=== PATIENT | female | born 1980 | race Caucasian/White ===

== ENCOUNTER 2019-12-13 19:28 | Inpatient (IN) ==
[2019-12-13] MEDS ORDERED: PEPCID PO ONE (19:32)
[2019-12-13] MEDS ORDERED: STADOL IV PRN ×2 (19:32)
[2019-12-13] MEDS ORDERED: PEPCID PO PRN (19:32)
[2019-12-13] MEDS ORDERED: BRETHINE SUBQ PRN (19:32)
[2019-12-13] MEDS ORDERED: ZOFRAN IV PRN (19:32)
[2019-12-13] MEDS ORDERED: PEPCID IV PRN (19:32)
[2019-12-13] MEDS ORDERED: AMBIEN PO PRN (19:32)
[2019-12-13] MEDS ORDERED: REGLAN PO ONE (19:32)
[2019-12-13] MEDS ORDERED: TYLENOL PO PRN (19:32)
[2019-12-13] MEDS ORDERED: KEFZOL 1 GM/D5W 1 GM/50 ML IVPB IV PRN (19:32)
[2019-12-13] MEDS ORDERED: AMPICILLIN 2 GM in NS 100 ML IV ONE (19:43)
[2019-12-13] MEDS ORDERED: CYTOTEC PO ONE (20:00)
[2019-12-13] MEDS: LR 1,000 ML IV ONE (21:45)
[2019-12-13 21:57] LABS: URINE SOURCE CLEAN CATCH
[2019-12-13 22:02] LABS: BASO# 0.02 X1000 (0.0-0.2); BASO% 0.1 % (0.0-0.8); EOS# 0.22 X1000 (0.0-0.7); EOS% 1.4 % (0.0-10.0); HEMATOCRIT 33.7 % (37.0-47.0); HEMOGLOBIN 10.9 g/dL (12.0-16.0); IMM GRAN# 0.06 X1000 (0.0-0.04); IMM GRAN% 0.4 % (0.0-0.5); LYMPH# 3.01 X1000 (1.2-3.4); LYMPH% 19.1 % (20.5-51.1); MCH 26.8 PG (27-31); MCHC 32.3 g/dL (33-37); MONO# 0.97 X1000 (0.11-0.59); MONO% 6.1 % (1.7-9.3); MPV 10.1 FL (7.4-10.4); NEUT% 72.9 % (42.2-75.2); PLT 278 X1000 (130-400); RBC 4.06 XMIL (4.2-5.4); RDW 14.3 % (11.5-14.5); WBC 15.78 X1000 (4.8-10.8)
[2019-12-13 22:10] LABS: UR AMPHETAMINES QUAL NONE DETECTED (NONE DETECT); UR BARBITUATES QUAL NONE DETECTED (NONE DETECT); UR BENZODIAZEPIN QUAL NONE DETECTED (NONE DETECT); UR CANNABINOIDS QUAL NONE DETECTED (NONE DETECT); UR COCAINE QUAL NONE DETECTED (NONE DETECT); UR METHADONE QUAL NONE DETECTED (NONE DETECT); UR OPIATES QUAL NONE DETECTED (NONE DETECT); UR OXYCODONE QUAL NONE DETECTED (NONE DETECT); UR PCP QUAL NONE DETECTED (NONE DETECT)
[2019-12-13 22:20] LABS: AGAP 12; ALKALINE PHOSPHATASE 87 U/L (32-104); BUN 12 mg/dL (8-22); CALCIUM 9.1 mg/dL (8.8-10.2); CHLORIDE 105 mmol/L (98-107); COSMO 278; CREATININE 0.5 mg/dL (0.5-0.9); ESTIMATED GFR > 60; GLUCOSE 136 mg/dL (70-104); GOT 21 U/L (10-30); GPT 8 U/L (10-36); POTASSIUM 4.7 mmol/L (3.5-5.1); SODIUM 138 mmol/L (136-145); TCO2 21 mmol/L (25-35); TOTAL BILIRUBIN 0.19 mg/dL (0.20-1.00); URIC ACID 5.2 mg/dL (2.4-5.7)
[2019-12-13 22:36] LABS: BILIRUBIN URINE NEGATIVE (NEGATIVE); BLOOD URINE NEGATIVE (NEGATIVE); COLOR YELLOW; GLUCOSE URINE NEGATIVE (NEGATIVE); KETONE URINE NEGATIVE (NEGATIVE); LEUKOCYTES URINE NEGATIVE (NEGATIVE); NITRITE URINE NEGATIVE (NEGATIVE); PROTEIN URINE 50 mg/dL (NEGATIVE); SP GRAVITY URINE 1.029; TURBIDITY URINE HAZY (CLEAR); UROBILINOGEN URINE 2 mg/dL (NORMAL)
--- NOTE | 2019-12-13 22:41 | Diag Imaging Result Doc PS360 ---
CHEST-PORTABLE - 12/13/2019 INDICATION: Hx Cardiomegaly COMPARISON: 08/24/2016 FINDINGS: The lungs are normally expanded and clear. Heart size and mediastinal contours are normal. No pneumothorax or pleural effusion. IMPRESSION: Negative exam. Electronically signed by Hector Ledezma 12/13/2019 10:39 PM
[2019-12-13 22:43] LABS: UR EPITHELIAL CELLS >10 /HPF (<10); URINE BACTERIA 3+ /HPF; URINE RBC <10 /HPF (<10); URINE WBC 20-40 /HPF (<10); URINE YEAST PRESENT
[2019-12-13 22:44] LABS: URINE CASTS NONE SEEN; URINE CRYSTALS CA OXALATE PRESENT; URINE SMALL ROUND CELLS NONE SEEN
[2019-12-13] MEDS ORDERED: CYTOTEC ONE (23:26)
[2019-12-13 23:33] LABS: PROTEIN CREAT RATIO 0.2; UR CREAT RANDOM 170.1 mg/dL (11-20); UR PROT RANDOM 34.1 mg/dL
[2019-12-14] MEDS ORDERED: SODIUM CHLORIDE 0.9% INJ PRN ×2 (00:34→15:54)
[2019-12-14] MEDS ORDERED: PHENERGAN IV PRN ×2 (00:34→15:54)
[2019-12-14] MEDS: STADOL IV PRN ×2 (01:24→04:35)
--- NOTE | 2019-12-14 01:33 | OB/GYN PROGRESS NOTE ---
- Subjective Gayle was seen at the bedside and is sleepy after receiving Stadol 2mg/Phenergan 12.5 mg IV for her chronic back discomfort. It has been observed that her O2 sat decreases to ~93+ when she is sleeping. Therefore, she will receive O2 via nasal cannula. She has no complaints. OB Physical Exam Vital Signs - 8 hr 12/13/19 19:31 Temperature 97.3 F L Pulse Rate 80 Respiratory Rate 18 Blood Pressure 137/79 O2 Sat by Pulse Oximetry 97 - CONSTITUTIONAL General Appearance: no apparent distress, other (sleepy) - GENITOURINARY Heart Rate: 140-150's (cat 1) Active Medications Generic Name Dose Route Start Last Admin Trade Name Freq PRN Reason Stop Dose Admin Acetaminophen 650 mg 12/13/19 19:32 Tylenol PO Q4-6H PRN PRN Headache Butorphanol Tartrate 1 mg 12/13/19 19:32 Stadol IV Q2H PRN PRN Pain (1-4 on Pain Scale) Butorphanol Tartrate 2 mg 12/13/19 19:32 Stadol IV PRN PRN Pain Butorphanol Tartrate 2 mg 12/13/19 19:32 12/14/19 01:24 Stadol IV 2 mg Q2H PRN PRN Administration Pain (5-10 on Pain Scale) Famotidine 20 mg 12/13/19 19:32 Pepcid PO Q12H PRN PRN GI upset or indigestion Famotidine 20 mg 12/13/19 19:32 Pepcid IV Q12H PRN PRN GI upset or indigestion Lactated Ringer's 1,000 mls @ 125 mls/hr 12/13/19 19:32 12/13/19 21:45 Lr IV 12/14/19 03:31 125 mls/hr .Q8H ONE Administration Cefazolin Sodium/Dextrose 1 gm in 50 mls @ 100 mls/hr 12/13/19 19:32 Kefzol 1 Gm/D5w IV ONCE PRN PRN section Oxytocin/Sodium Chloride 30 unit in 500 mls @ 0 mls/hr 12/14/19 06:00 Pitocin 30 Units/Ns IV .Q0M JED As Directed Ampicillin Sodium 1 gm/ Sodium 50 mls @ 100 mls/hr 12/13/19 23:43 Chloride IV Q4H [facility] Misoprostol 50 microgm 12/14/19 00:00 Cytotec PO 12/14/19 04:01 Q4H JED Ondansetron HCl 4 mg 12/13/19 19:32 Zofran IV PRN PRN Nausea Promethazine HCl 12.5 mg 12/14/19 00:34 12/14/19 01:23 Phenergan IV 12.5 mg Q4H PRN PRN Administration Nausea And Vomiting Sodium Chloride 10 ml 12/14/19 00:34 12/14/19 01:23 Sodium Chloride 0.9% INJ 10 ml PRN PRN Administration Dilute Phenergan for IV use Terbutaline Sulfate 0.25 mg 12/13/19 19:32 Brethine SUBQ PRN PRN tachysystole/hypertonus Zolpidem Tartrate 10 mg 12/13/19 19:32 Ambien PO HS PRN PRN Sleep Laboratory Results - last 24 hr 12/13/19 12/13/19 12/13/19 19:30 19:30 19:30 WBC RBC Hgb Hct MCV MCH MCHC RDW Std Deviation Plt Count MPV Immature Gran % (Auto) Neut % (Auto) Lymph % (Auto) [place] % (Auto) Eos % (Auto) Baso % (Auto) Immature Gran # (Auto) Neut # (Auto) Lymph # (Auto) [place] # (Auto) Eos # (Auto) Baso # (Auto) Sodium Potassium Chloride Carbon Dioxide Anion Gap BUN Creatinine Estimated GFR/1.73 m2 BUN/Creatinine Ratio Glucose Calculated Osmolality Uric Acid Calcium Total Bilirubin AST ALT Alkaline Phosphatase Total Protein Albumin Globulin Albumin/Globulin Ratio Urine Source CLEAN CATCH Urine Color YELLOW Urine Turbidity HAZY Urine pH 6.0 Ur Specific [place] 1.029 Urine Protein 50 A Ur Glucose (Stick) NEGATIVE Ur Ketones (Stick) NEGATIVE Urine Blood NEGATIVE Urine Nitrite NEGATIVE Urine Bilirubin NEGATIVE Urobilinogen Dipstick 2 A Urine Leukocytes NEGATIVE Urine WBC (Auto) 20-40 A Urine RBC (Auto) <10 U Epithel Cells (Auto) >10 A Urine Bacteria (Auto) 3+ Urine Crystals CA OXALATE PRESENT Small Round Cells NONE SEEN Urine Casts NONE SEEN Urine Yeast-like Cells PRESENT Ur Random Creatinine 170.1 H U Random Total Protein 34.1 Protein/Creatinin Ratio 0.2 Urine Opiates Screen NONE DETECTED Ur Oxycodone Screen NONE DETECTED Ur Methadone, Qual NONE DETECTED Ur Barbiturates Screen NONE DETECTED Ur Phencyclidine Scrn NONE DETECTED Ur Amphetamines Screen NONE DETECTED U Benzodiazepines Scrn NONE DETECTED Urine Cocaine Screen NONE DETECTED U Cannabinoids Screen NONE DETECTED RPR Blood Type Antibody Screen 12/13/19 12/13/19 12/13/19 21:45 21:45 21:45 WBC 15.78 H RBC 4.06 L Hgb 10.9 L Hct 33.7 L MCV 83.0 MCH 26.8 L MCHC 32.3 L RDW Std Deviation 14.3 Plt Count 278 MPV 10.1 Immature Gran % (Auto) 0.4 Neut % (Auto) 72.9 Lymph % (Auto) 19.1 L [place] % (Auto) 6.1 Eos % (Auto) 1.4 Baso % (Auto) 0.1 Immature Gran # (Auto) 0.06 H Neut # (Auto) 11.50 H Lymph # (Auto) 3.01 [place] # (Auto) 0.97 H Eos # (Auto) 0.22 Baso # (Auto) 0.02 Sodium Potassium Chloride Carbon Dioxide Anion Gap BUN Creatinine Estimated GFR/1.73 m2 BUN/Creatinine Ratio Glucose Calculated Osmolality Uric Acid Calcium Total Bilirubin AST ALT Alkaline Phosphatase Total Protein Albumin Globulin Albumin/Globulin Ratio Urine Source Urine Color Urine Turbidity Urine pH Ur Specific [place] Urine Protein Ur Glucose (Stick) Ur Ketones (Stick) Urine Blood Urine Nitrite Urine Bilirubin Urobilinogen Dipstick Urine Leukocytes Urine WBC (Auto) Urine RBC (Auto) U Epithel Cells (Auto) Urine Bacteria (Auto) Urine Crystals Small Round Cells Urine Casts Urine Yeast-like Cells Ur Random Creatinine U Random Total Protein Protein/Creatinin Ratio Urine Opiates Screen Ur Oxycodone Screen Ur Methadone, Qual Ur Barbiturates Screen Ur Phencyclidine Scrn Ur Amphetamines Screen U Benzodiazepines Scrn Urine Cocaine Screen U Cannabinoids Screen RPR NON-REACTIVE Blood Type B POSITIVE Antibody Screen NEGATIVE 12/13/19 21:45 WBC RBC Hgb Hct MCV MCH MCHC RDW Std Deviation Plt Count MPV Immature Gran % (Auto) Neut % (Auto) Lymph % (Auto) [place] % (Auto) Eos % (Auto) Baso % (Auto) Immature Gran # (Auto) Neut # (Auto) Lymph # (Auto) [place] # (Auto) Eos # (Auto) Baso # (Auto) Sodium 138 Potassium 4.7 Chloride 105 Carbon Dioxide 21 L Anion Gap 12 BUN 12 Creatinine 0.5 Estimated GFR/1.73 m2 > 60 BUN/Creatinine Ratio 24 Glucose 136 H Calculated Osmolality 278 Uric Acid 5.2 Calcium 9.1 Total Bilirubin 0.19 L AST 21 ALT 8 L Alkaline Phosphatase 87 Total Protein 6.0 L Albumin 3.0 L Globulin 3.0 Albumin/Globulin Ratio 1.0 Urine Source Urine Color Urine Turbidity Urine pH Ur Specific [place] Urine Protein Ur Glucose (Stick) Ur Ketones (Stick) Urine Blood Urine Nitrite Urine Bilirubin Urobilinogen Dipstick Urine Leukocytes Urine WBC (Auto) Urine RBC (Auto) U Epithel Cells (Auto) Urine Bacteria (Auto) Urine Crystals Small Round Cells Urine Casts Urine Yeast-like Cells Ur Random Creatinine U Random Total Protein Protein/Creatinin Ratio Urine Opiates Screen Ur Oxycodone Screen Ur Methadone, Qual Ur Barbiturates Screen Ur Phencyclidine Scrn Ur Amphetamines Screen U Benzodiazepines Scrn Urine Cocaine Screen U Cannabinoids Screen RPR Blood Type Antibody Screen OB Assessment & Plan (1) 38 weeks gestation of Status: Acute Plan: 1. O2 by NC to increase 02 sat while sleeping 2. Continue present management for cervical ripening (2) Positive GBS test Status: Acute Plan: Continue IV Amp q 4 hrs until delivery (3) Morbid obesity Status: Chronic Plan: Follow counseling (4) GDM, class A2 Status: Acute Plan: Monitor BS, s/p home Metformin & home NPH (5) Chronic hypertension affecting Status: Chronic Plan: Monitor VS, s/p home po Labetalol (6) Anemia Status: Chronic Plan: Con't Fe2+, s/p home Ferrous sulfate 324 mg po (7) Tobacco abuse Status: Chronic Plan: Encouraged abstinence (8) Depression Status: Resolved Plan: Currently managed without medication. No intervention at this time. No SI/HI (9) Advanced maternal age (AMA), 40 years or greater Status: Acute Plan: She has been co-managed with Dr. Rasmussen
--- NOTE | 2019-12-14 02:32 | HISTORY AND PHYSICAL ---
HISTORY OF PRESENT ILLNESS: Gayle is a patient of Dr. Triplett who is a 39-year-old female, G 4, P 2-0-1-2, estimated date of confinement is 12/27/2019 by a first-trimester ultrasound. The patient has an intrauterine gestation at 38 and 0/7 weeks today. She presents for an induction of labor secondary to multiple comorbidities. She has been co- managed by Dr. Rasmussen (Maternal Medicine specialist). While obtaining Gayle's history, it was identified that she was diagnosed with cardiomegaly in the year 2015 while being evaluated at [place]'s emergency room secondary to respiratory symptoms. The chest x-ray report was reviewed and the diagnosis of cardiomegaly was confirmed. Therefore, a stat chest x-ray was ordered to assess her heart size. The chest x-ray report was reviewed and the diagnosis of a normal chest x-ray was interpreted by the radiologist. The radiology film was reviewed, personally, and the patient's heart size appears to be normal. Therefore, we can proceed with the induction of labor. OBSTETRICAL HISTORY: Significant for advanced maternal age, gestational diabetes type A2, chronic hypertension, and positive group B strep culture. The patient has had 2 previous vaginal deliveries and these children are in their 20's. The patient states that she had 1 miscarriage during her 1st trimester. PAST MEDICAL HISTORY: Anemia, morbid obesity, depression (stable without medications), chronic hypertension, cardiomegaly in 2015 that has since resolved, intertrigo resolved. PAST SURGICAL HISTORY: Denies. SOCIAL HISTORY: Significant for 1 pack per day tobacco use x8 years. ALLERGIES: NKDA. MEDICATIONS: 1. Labetalol 200 mg po BID. 2. Metformin 1000 mg po in the a.m. and p.m. 3. NPH insulin 20 units SQ every hs (recent increase secondary to elevated FBS results). 4. Ferrous sulfate 324 mg po BID. FAMILY HISTORY: Significant for a grandfather, who is demised and had a history of insulin- dependent diabetes mellitus. Her father, age 58, suffers from [id number] diabetes. He has had 3 to 4 myocardial infarctions, 1 stent placement and open-heart surgery. LABORATORY: WBC 15.78, hemoglobin 10.9, hematocrit 33.7, platelet count 278,000. CMP results, sodium 138, chloride 105, potassium 4.7, chloride 107, BUN 12, creatinine 0.5, glucose 136. Urinalysis, protein equals 50, random total protein of 34.1, calcium oxalate present, glucose negative, ketones negative, blood negative, nitrite negative. Urinary drug screen negative. RPR nonreactive. PHYSICAL EXAMINATION: VITAL SIGNS: Respiratory rate 16, pulse 87, blood pressure 139/79. HEART: Regular rhythm and rate without murmur. LUNGS: Clear to auscultation bilaterally. ABDOMEN: Obese, gravid. no Intertriginous dermatitis, heart tones 140s (category 1). GENITOURINARY: Cervical examination: Dilation is fingertip to 1 cm, effacement 55%, station -4. Membranes are intact. Bedside ultrasound identifies a kramer fetus in the vertex presentation. ASSESSMENT: 1. Intrauterine at 38 and 0/7 weeks gestation by 1st trimester ultrasound. 2. Positive Group B Beta Streptococcus culture. 3. Morbid obesity. 4. Chronic hypertension. 5. Gestational diabetes type A2. 6. Tobacco abuse. 7. Advanced maternal age. 8. Mild anemia. 9. Desire for permanent sterilization (The plan is to perform the sterilization during her period; however, if she has a delivery, her tubal sterilization will be performed at that time). PLAN: 1. Admit to Labor and delivery. 2. IV hydration 3. IV antibiotics for group B Beta Strep treatment. 4. Labs - done (BS will continue to be monitored) 5. Cytotec for cervical ripening. 6. Pitocin for labor induction after Cytotec regimen. 7. Monitor vital signs closely. 8. The patient was allowed to take her home medications tonight. However, this will be reevaluated for tomorrow. 9. We will attempt a vaginal delivery; however, we will perform a section for indications and will perform a tubal sterilization, if a surgical delivery is performed. [facility]OSPITALAleida
[2019-12-14] MEDS: AMPICILLIN 1 GM in NS 50 ML IV SCH ×5 (02:59→16:09)
[2019-12-14] MEDS: CYTOTEC PO SCH ×2 (04:26→08:26)
[2019-12-14] MEDS ORDERED: PITOCIN 30 UNITS/NS 30 UNIT/500 ML IV.SOLN IV SCH (06:00)
--- NOTE | 2019-12-14 07:05 | OB/GYN PROGRESS NOTE ---
- Subjective Gayle has been up to the rest room to freshen up and ambulated well across her room. She admits to sleeping well during the night. She has no complaints. OB Physical Exam - CONSTITUTIONAL General Appearance: appears well - GASTROINTESTINAL (ABDOMEN) Abdominal Exam: other (FHR 130's (cat 1), no ctx's) - MUSCULOSKELETAL Extremity: normal gait, no pedal edema Active Medications Generic Name Dose Route Start Last Admin Trade Name Freq PRN Reason Stop Dose Admin Acetaminophen 650 mg 12/13/19 19:32 Tylenol PO Q4-6H PRN PRN Headache Butorphanol Tartrate 1 mg 12/13/19 19:32 Stadol IV Q2H PRN PRN Pain (1-4 on Pain Scale) Butorphanol Tartrate 2 mg 12/13/19 19:32 Stadol IV PRN PRN Pain Butorphanol Tartrate 2 mg 12/13/19 19:32 12/14/19 04:35 Stadol IV 2 mg Q2H PRN PRN Administration Pain (5-10 on Pain Scale) Famotidine 20 mg 12/13/19 19:32 Pepcid PO Q12H PRN PRN GI upset or indigestion Famotidine 20 mg 12/13/19 19:32 Pepcid IV Q12H PRN PRN GI upset or indigestion Cefazolin Sodium/Dextrose 1 gm in 50 mls @ 100 mls/hr 12/13/19 19:32 Kefzol 1 Gm/D5w IV ONCE PRN PRN section Oxytocin/Sodium Chloride 30 unit in 500 mls @ 0 mls/hr 12/14/19 06:00 Pitocin 30 Units/Ns IV .Q0M JED As Directed Ampicillin Sodium 1 gm/ Sodium 50 mls @ 100 mls/hr 12/13/19 23:43 12/14/19 05:20 Chloride IV Not Given Q4H JED Ondansetron HCl 4 mg 12/13/19 19:32 Zofran IV PRN PRN Nausea Promethazine HCl 12.5 mg 12/14/19 00:34 12/14/19 01:23 Phenergan IV 12.5 mg Q4H PRN PRN Administration Nausea And Vomiting Sodium Chloride 10 ml 12/14/19 00:34 12/14/19 01:23 Sodium Chloride 0.9% INJ 10 ml PRN PRN Administration Dilute Phenergan for IV use Terbutaline Sulfate 0.25 mg 12/13/19 19:32 Brethine SUBQ PRN PRN tachysystole/hypertonus Zolpidem Tartrate 10 mg 12/13/19 19:32 Ambien PO HS PRN PRN Sleep Laboratory Results - last 24 hr 12/13/19 12/13/19 12/13/19 19:30 19:30 19:30 WBC RBC Hgb Hct MCV MCH MCHC RDW Std Deviation Plt Count MPV Immature Gran % (Auto) Neut % (Auto) Lymph % (Auto) [place] % (Auto) Eos % (Auto) Baso % (Auto) Immature Gran # (Auto) Neut # (Auto) Lymph # (Auto) [place] # (Auto) Eos # (Auto) Baso # (Auto) Sodium Potassium Chloride Carbon Dioxide Anion Gap BUN Creatinine Estimated GFR/1.73 m2 BUN/Creatinine Ratio Glucose POC Glucose Calculated Osmolality Uric Acid Calcium Total Bilirubin AST ALT Alkaline Phosphatase Total Protein Albumin Globulin Albumin/Globulin Ratio Urine Source CLEAN CATCH Urine Color YELLOW Urine Turbidity HAZY Urine pH 6.0 Ur Specific [place] 1.029 Urine Protein 50 A Ur Glucose (Stick) NEGATIVE Ur Ketones (Stick) NEGATIVE Urine Blood NEGATIVE Urine Nitrite NEGATIVE Urine Bilirubin NEGATIVE Urobilinogen Dipstick 2 A Urine Leukocytes NEGATIVE Urine WBC (Auto) 20-40 A Urine RBC (Auto) <10 U Epithel Cells (Auto) >10 A Urine Bacteria (Auto) 3+ Urine Crystals CA OXALATE PRESENT Small Round Cells NONE SEEN Urine Casts NONE SEEN Urine Yeast-like Cells PRESENT Ur Random Creatinine 170.1 H U Random Total Protein 34.1 Protein/Creatinin Ratio 0.2 Urine Opiates Screen NONE DETECTED Ur Oxycodone Screen NONE DETECTED Ur Methadone, Qual NONE DETECTED Ur Barbiturates Screen NONE DETECTED Ur Phencyclidine Scrn NONE DETECTED Ur Amphetamines Screen NONE DETECTED U Benzodiazepines Scrn NONE DETECTED Urine Cocaine Screen NONE DETECTED U Cannabinoids Screen NONE DETECTED RPR Blood Type Antibody Screen 12/13/19 12/13/19 12/13/19 21:45 21:45 21:45 WBC 15.78 H RBC 4.06 L Hgb 10.9 L Hct 33.7 L MCV 83.0 MCH 26.8 L MCHC 32.3 L RDW Std Deviation 14.3 Plt Count 278 MPV 10.1 Immature Gran % (Auto) 0.4 Neut % (Auto) 72.9 Lymph % (Auto) 19.1 L [place] % (Auto) 6.1 Eos % (Auto) 1.4 Baso % (Auto) 0.1 Immature Gran # (Auto) 0.06 H Neut # (Auto) 11.50 H Lymph # (Auto) 3.01 [place] # (Auto) 0.97 H Eos # (Auto) 0.22 Baso # (Auto) 0.02 Sodium Potassium Chloride Carbon Dioxide Anion Gap BUN Creatinine Estimated GFR/1.73 m2 BUN/Creatinine Ratio Glucose POC Glucose Calculated Osmolality Uric Acid Calcium Total Bilirubin AST ALT Alkaline Phosphatase Total Protein Albumin Globulin Albumin/Globulin Ratio Urine Source Urine Color Urine Turbidity Urine pH Ur Specific [place] Urine Protein Ur Glucose (Stick) Ur Ketones (Stick) Urine Blood Urine Nitrite Urine Bilirubin Urobilinogen Dipstick Urine Leukocytes Urine WBC (Auto) Urine RBC (Auto) U Epithel Cells (Auto) Urine Bacteria (Auto) Urine Crystals Small Round Cells Urine Casts Urine Yeast-like Cells Ur Random Creatinine U Random Total Protein Protein/Creatinin Ratio Urine Opiates Screen Ur Oxycodone Screen Ur Methadone, Qual Ur Barbiturates Screen Ur Phencyclidine Scrn Ur Amphetamines Screen U Benzodiazepines Scrn Urine Cocaine Screen U Cannabinoids Screen RPR NON-REACTIVE Blood Type B POSITIVE Antibody Screen NEGATIVE 12/13/19 12/14/19 21:45 04:28 WBC RBC Hgb Hct MCV MCH MCHC RDW Std Deviation Plt Count MPV Immature Gran % (Auto) Neut % (Auto) Lymph % (Auto) [place] % (Auto) Eos % (Auto) Baso % (Auto) Immature Gran # (Auto) Neut # (Auto) Lymph # (Auto) [place] # (Auto) Eos # (Auto) Baso # (Auto) Sodium 138 Potassium 4.7 Chloride 105 Carbon Dioxide 21 L Anion Gap 12 BUN 12 Creatinine 0.5 Estimated GFR/1.73 m2 > 60 BUN/Creatinine Ratio 24 Glucose 136 H POC Glucose 89 Calculated Osmolality 278 Uric Acid 5.2 Calcium 9.1 Total Bilirubin 0.19 L AST 21 ALT 8 L Alkaline Phosphatase 87 Total Protein 6.0 L Albumin 3.0 L Globulin 3.0 Albumin/Globulin Ratio 1.0 Urine Source Urine Color Urine Turbidity Urine pH Ur Specific [place] Urine Protein Ur Glucose (Stick) Ur Ketones (Stick) Urine Blood Urine Nitrite Urine Bilirubin Urobilinogen Dipstick Urine Leukocytes Urine WBC (Auto) Urine RBC (Auto) U Epithel Cells (Auto) Urine Bacteria (Auto) Urine Crystals Small Round Cells Urine Casts Urine Yeast-like Cells Ur Random Creatinine U Random Total Protein Protein/Creatinin Ratio Urine Opiates Screen Ur Oxycodone Screen Ur Methadone, Qual Ur Barbiturates Screen Ur Phencyclidine Scrn Ur Amphetamines Screen U Benzodiazepines Scrn Urine Cocaine Screen U Cannabinoids Screen RPR Blood Type Antibody Screen OB Assessment & Plan (1) 38 weeks gestation of Status: Acute Plan: Con't current management with cervical ripening. Next dose @ ~08:00 hours. (2) Positive GBS test Status: Acute Plan: Receiving IV Ampicillin. (3) Morbid obesity Status: Chronic Plan: Defer plan to discharge (4) GDM, class A2 Status: Acute Plan: Con't monitoring BS values. Take Metformin & NPH as directed to control BS. Co- managed w Dr. Rasmussen ([facility]) (5) Chronic hypertension affecting Status: Chronic Plan: Con't to monitor BP & take Labetalol as directed. Co-managed w Dr. Rasmussen ([facility]) (6) Anemia Status: Chronic Plan: Take Fe2+ as directed (7) Tobacco abuse Status: Chronic Plan: Create cessation plan PP (8) Depression Status: Resolved Plan: Stable at this time. No meds. (9) Advanced maternal age (AMA), 40 years or greater Status: Acute Plan: Co managed w Dr. Rasmussen [facility])
[2019-12-14] MEDS ORDERED: CYTOTEC ONE (08:25)
[2019-12-14] MEDS: TRANDATE PO SCH ×2 (08:26→20:32)
[2019-12-14] MEDS: LR 1,000 ML IV ONE (08:28)
[2019-12-14] MEDS ORDERED: LR 1,000 ML IV SCH (08:30)
[2019-12-14] MEDS ORDERED: KEFZOL 2 GM/D5W 2 GM/50 ML IVPB IV ONE (12:25)
--- NOTE | 2019-12-14 13:12 | OB/GYN PROGRESS NOTE ---
- Subjective 39 yo at 38w1d MI for CHTN, A2-GDM, AMA, morbid obesity, tobacco abuse Patient seen and examined. She is s/p 3 doses of cytotec and cervical exam remains unchanged, closed/thick/high. cardiac tracing has been category 2, with several late and spontaneous decelerations. Discussed remoteness from delivery, failure to dilate, and heart tracing with patient. At this time we will proceed with a 1LTCS with BTL, given these findings. Discussed R/B/A to and she desires to proceed. Risks include but are not limited to: bleeding, infection, damage to surroundings organs, possible need for re- operation, possible need for blood transfusion, increased risk of VTE, and even . She agrees to proceed. Will give Ancef 3g for surgical prophylaxis. OB Physical Exam Vital Signs - 8 hr 12/14/19 07:30 Temperature 97.4 F L Pulse Rate 61 Respiratory Rate 16 Blood Pressure 148/67 O2 Sat by Pulse Oximetry 97 - CONSTITUTIONAL General Appearance: appears well, alert, no apparent distress, obese - EYES Eyes: PERRL/EOMI - HEAD, EARS, NOSE, MOUTH & THROAT HENMT: normocephalic/atraumatic - RESPIRATORY Respiratory: no respiratory distress - CARDIOVASCULAR Cardiovascular: regular rate, rhythm - GASTROINTESTINAL (ABDOMEN) Abdominal Exam: non tender, soft, other (obese, gravid) - GENITOURINARY Vaginal Exam: closed/thick/high, difficult to reach cervix - MUSCULOSKELETAL Extremity: pedal edema - SKIN Integumentary: normal color - NEUROLOGIC Neurologic: grossly normal - PSYCHIATRIC Psych/Mental Status: normal mood/affect, normal thought content Active Medications Generic Name Dose Route Start Last Admin Trade Name Freq PRN Reason Stop Dose Admin Acetaminophen 650 mg 12/13/19 19:32 Tylenol PO Q4-6H PRN PRN Headache Butorphanol Tartrate 1 mg 12/13/19 19:32 12/14/19 11:04 Stadol IV 1 mg Q2H PRN PRN Administration Pain (1-4 on Pain Scale) Butorphanol Tartrate 2 mg 12/13/19 19:32 Stadol IV PRN PRN Pain Butorphanol Tartrate 2 mg 12/13/19 19:32 12/14/19 04:35 Stadol IV 2 mg Q2H PRN PRN Administration Pain (5-10 on Pain Scale) Famotidine 20 mg 12/13/19 19:32 Pepcid PO Q12H PRN PRN GI upset or indigestion Famotidine 20 mg 12/13/19 19:32 Pepcid IV Q12H PRN PRN GI upset or indigestion Cefazolin Sodium/Dextrose 1 gm in 50 mls @ 100 mls/hr 12/13/19 19:32 Kefzol 1 Gm/D5w IV ONCE PRN PRN section Oxytocin/Sodium Chloride 30 unit in 500 mls @ 0 mls/hr 12/14/19 06:00 Pitocin 30 Units/Ns IV .Q0M JED As Directed Ampicillin Sodium 1 gm/ Sodium 50 mls @ 100 mls/hr 12/13/19 23:43 12/14/19 10:57 Chloride IV 100 mls/hr Q4H JED Administration Lactated Ringer's 1,000 mls @ 0 mls/hr 12/14/19 08:30 Lr IV .Q0M JED As Directed Cefazolin Sodium/Dextrose 2 gm in 50 mls @ 50 mls/hr 12/14/19 12:25 Kefzol 2 Gm/D5w IV 12/14/19 13:24 NOW ONE Labetalol HCl 200 mg 12/14/19 09:00 12/14/19 08:26 Trandate PO 200 mg BID JED Administration Ondansetron HCl 4 mg 12/13/19 19:32 Zofran IV PRN PRN Nausea Promethazine HCl 12.5 mg 12/14/19 00:34 12/14/19 01:23 Phenergan IV 12.5 mg Q4H PRN PRN Administration Nausea And Vomiting Sodium Chloride 10 ml 12/14/19 00:34 12/14/19 01:23 Sodium Chloride 0.9% INJ 10 ml PRN PRN Administration Dilute Phenergan for IV use Terbutaline Sulfate 0.25 mg 12/13/19 19:32 Brethine SUBQ PRN PRN tachysystole/hypertonus Zolpidem Tartrate 10 mg 12/13/19 19:32 Ambien PO HS PRN PRN Sleep Laboratory Results - last 24 hr 12/13/19 12/13/19 12/13/19 19:30 19:30 19:30 WBC RBC Hgb Hct MCV MCH MCHC RDW Std Deviation Plt Count MPV Immature Gran % (Auto) Neut % (Auto) Lymph % (Auto) [place] % (Auto) Eos % (Auto) Baso % (Auto) Immature Gran # (Auto) Neut # (Auto) Lymph # (Auto) [place] # (Auto) Eos # (Auto) Baso # (Auto) Sodium Potassium Chloride Carbon Dioxide Anion Gap BUN Creatinine Estimated GFR/1.73 m2 BUN/Creatinine Ratio Glucose POC Glucose Calculated Osmolality Uric Acid Calcium Total Bilirubin AST ALT Alkaline Phosphatase Total Protein Albumin Globulin Albumin/Globulin Ratio Urine Source CLEAN CATCH Urine Color YELLOW Urine Turbidity HAZY Urine pH 6.0 Ur Specific [place] 1.029 Urine Protein 50 A Ur Glucose (Stick) NEGATIVE Ur Ketones (Stick) NEGATIVE Urine Blood NEGATIVE Urine Nitrite NEGATIVE Urine Bilirubin NEGATIVE Urobilinogen Dipstick 2 A Urine Leukocytes NEGATIVE Urine WBC (Auto) 20-40 A Urine RBC (Auto) <10 U Epithel Cells (Auto) >10 A Urine Bacteria (Auto) 3+ Urine Crystals CA OXALATE PRESENT Small Round Cells NONE SEEN Urine Casts NONE SEEN Urine Yeast-like Cells PRESENT Ur Random Creatinine 170.1 H U Random Total Protein 34.1 Protein/Creatinin Ratio 0.2 Urine Opiates Screen NONE DETECTED Ur Oxycodone Screen NONE DETECTED Ur Methadone, Qual NONE DETECTED Ur Barbiturates Screen NONE DETECTED Ur Phencyclidine Scrn NONE DETECTED Ur Amphetamines Screen NONE DETECTED U Benzodiazepines Scrn NONE DETECTED Urine Cocaine Screen NONE DETECTED U Cannabinoids Screen NONE DETECTED RPR Blood Type Antibody Screen 12/13/19 12/13/19 12/13/19 21:45 21:45 21:45 WBC 15.78 H RBC 4.06 L Hgb 10.9 L Hct 33.7 L MCV 83.0 MCH 26.8 L MCHC 32.3 L RDW Std Deviation 14.3 Plt Count 278 MPV 10.1 Immature Gran % (Auto) 0.4 Neut % (Auto) 72.9 Lymph % (Auto) 19.1 L [place] % (Auto) 6.1 Eos % (Auto) 1.4 Baso % (Auto) 0.1 Immature Gran # (Auto) 0.06 H Neut # (Auto) 11.50 H Lymph # (Auto) 3.01 [place] # (Auto) 0.97 H Eos # (Auto) 0.22 Baso # (Auto) 0.02 Sodium Potassium Chloride Carbon Dioxide Anion Gap BUN Creatinine Estimated GFR/1.73 m2 BUN/Creatinine Ratio Glucose POC Glucose Calculated Osmolality Uric Acid Calcium Total Bilirubin AST ALT Alkaline Phosphatase Total Protein Albumin Globulin Albumin/Globulin Ratio Urine Source Urine Color Urine Turbidity Urine pH Ur Specific [place] Urine Protein Ur Glucose (Stick) Ur Ketones (Stick) Urine Blood Urine Nitrite Urine Bilirubin Urobilinogen Dipstick Urine Leukocytes Urine WBC (Auto) Urine RBC (Auto) U Epithel Cells (Auto) Urine Bacteria (Auto) Urine Crystals Small Round Cells Urine Casts Urine Yeast-like Cells Ur Random Creatinine U Random Total Protein Protein/Creatinin Ratio Urine Opiates Screen Ur Oxycodone Screen Ur Methadone, Qual Ur Barbiturates Screen Ur Phencyclidine Scrn Ur Amphetamines Screen U Benzodiazepines Scrn Urine Cocaine Screen U Cannabinoids Screen RPR NON-REACTIVE Blood Type B POSITIVE Antibody Screen NEGATIVE 12/13/19 12/14/19 12/14/19 21:45 04:28 08:02 WBC RBC Hgb Hct MCV MCH MCHC RDW Std Deviation Plt Count MPV Immature Gran % (Auto) Neut % (Auto) Lymph % (Auto) [place] % (Auto) Eos % (Auto) Baso % (Auto) Immature Gran # (Auto) Neut # (Auto) Lymph # (Auto) [place] # (Auto) Eos # (Auto) Baso # (Auto) Sodium 138 Potassium 4.7 Chloride 105 Carbon Dioxide 21 L Anion Gap 12 BUN 12 Creatinine 0.5 Estimated GFR/1.73 m2 > 60 BUN/Creatinine Ratio 24 Glucose 136 H POC Glucose 89 74 Calculated Osmolality 278 Uric Acid 5.2 Calcium 9.1 Total Bilirubin 0.19 L AST 21 ALT 8 L Alkaline Phosphatase 87 Total Protein 6.0 L Albumin 3.0 L Globulin 3.0 Albumin/Globulin Ratio 1.0 Urine Source Urine Color Urine Turbidity Urine pH Ur Specific [place] Urine Protein Ur Glucose (Stick) Ur Ketones (Stick) Urine Blood Urine Nitrite Urine Bilirubin Urobilinogen Dipstick Urine Leukocytes Urine WBC (Auto) Urine RBC (Auto) U Epithel Cells (Auto) Urine Bacteria (Auto) Urine Crystals Small Round Cells Urine Casts Urine Yeast-like Cells Ur Random Creatinine U Random Total Protein Protein/Creatinin Ratio Urine Opiates Screen Ur Oxycodone Screen Ur Methadone, Qual Ur Barbiturates Screen Ur Phencyclidine Scrn Ur Amphetamines Screen U Benzodiazepines Scrn Urine Cocaine Screen U Cannabinoids Screen RPR Blood Type Antibody Screen 12/14/19 11:53 WBC RBC Hgb Hct MCV MCH MCHC RDW Std Deviation Plt Count MPV Immature Gran % (Auto) Neut % (Auto) Lymph % (Auto) [place] % (Auto) Eos % (Auto) Baso % (Auto) Immature Gran # (Auto) Neut # (Auto) Lymph # (Auto) [place] # (Auto) Eos # (Auto) Baso # (Auto) Sodium Potassium Chloride Carbon Dioxide Anion Gap BUN Creatinine Estimated GFR/1.73 m2 BUN/Creatinine Ratio Glucose POC Glucose 75 Calculated Osmolality Uric Acid Calcium Total Bilirubin AST ALT Alkaline Phosphatase Total Protein Albumin Globulin Albumin/Globulin Ratio Urine Source Urine Color Urine Turbidity Urine pH Ur Specific [place] Urine Protein Ur Glucose (Stick) Ur Ketones (Stick) Urine Blood Urine Nitrite Urine Bilirubin Urobilinogen Dipstick Urine Leukocytes Urine WBC (Auto) Urine RBC (Auto) U Epithel Cells (Auto) Urine Bacteria (Auto) Urine Crystals Small Round Cells Urine Casts Urine Yeast-like Cells Ur Random Creatinine U Random Total Protein Protein/Creatinin Ratio Urine Opiates Screen Ur Oxycodone Screen Ur Methadone, Qual Ur Barbiturates Screen Ur Phencyclidine Scrn Ur Amphetamines Screen U Benzodiazepines Scrn Urine Cocaine Screen U Cannabinoids Screen RPR Blood Type Antibody Screen
[2019-12-14] MEDS ORDERED: BICITRA PO ONE (13:15)
[2019-12-14] MEDS ORDERED: REGLAN PO ONE (13:15)
[2019-12-14] MEDS ORDERED: PEPCID PO ONE (13:15)
[2019-12-14] MEDS ORDERED: EPHEDRINE ONE (14:40)
[2019-12-14] MEDS ORDERED: ROBINUL ONE (14:43)
[2019-12-14] MEDS ORDERED: TORADOL ONE (15:53)
[2019-12-14] MEDS ORDERED: PITOCIN IM PRN (15:54)
[2019-12-14] MEDS ORDERED: DULCOLAX PR PRN (15:54)
[2019-12-14] MEDS ORDERED: BOOSTRIX VACCINE IM ONE (15:54)
[2019-12-14] MEDS ORDERED: ATARAX PO PRN (15:54)
[2019-12-14] MEDS ORDERED: AMBIEN PO PRN (15:54)
[2019-12-14] MEDS ORDERED: PERCOCET-5 PO PRN (15:54)
[2019-12-14] MEDS ORDERED: PERCOCET-10 PO PRN (15:54)
[2019-12-14] MEDS ORDERED: MYLICON PO PRN (15:54)
[2019-12-14] MEDS ORDERED: M-M-R II VACCINE SUBQ ONE (15:54)
[2019-12-14] MEDS ORDERED: MORPHINE IV PRN (15:54)
[2019-12-14] MEDS ORDERED: HYDROXYZINE IM PRN (15:54)
[2019-12-14] MEDS ORDERED: PITOCIN 20 UNITS/NS 20 UNITS/1,000 ML IV.SOLN IV ONE (15:54)
[2019-12-14] MEDS ORDERED: ZOFRAN PO PRN (16:01)
[2019-12-14] MEDS ORDERED: LR 1,000 ML ONE (16:10)
--- NOTE | 2019-12-14 16:39 | OPERATIVE NOTE ---
PROCEDURE DATE: 12/14/2019 PREOPERATIVE DIAGNOSES: 1. Failure to dilate. 2. Chronic hypertension. 3. A2 gestational diabetes. 4. Morbid obesity. 5. Advanced maternal age. 6. Tobacco abuse. 7. Desires permanent sterilization POSTOPERATIVE DIAGNOSIS: 1. Failure to dilate. 2. Chronic hypertension. 3. A2 gestational diabetes. 4. Morbid obesity. 5. Advanced maternal age. 6. Tobacco abuse. 7. Desires permanent sterilization SURGEON: Heraclio Infante DO. CHILDREN'S PROGRAM COORDINATOR: Paula Lorenzo DO. ANESTHESIA: Spinal. ESTIMATED BLOOD LOSS: 900 mL. IV FLUIDS: 1300 mL. URINE OUTPUT: 125 mL. SPECIMEN: Bilateral fallopian tube segments. FINDINGS: Viable female in the cephalic presentation. Apgars 9 and 10. Weight is 6 pounds. Normal-appearing uterus, tubes, and ovaries. INDICATIONS AND CONSENT: The patient is a 39-year-old G4, P2-0-1-2 at 38 weeks and 1 day who presented to Labor and Delivery for medical induction of labor for chronic hypertension and A2 gestational diabetes. has been complicated by morbid obesity, advanced maternal age and tobacco abuse. Decision was made to proceed with a primary low-transverse section and bilateral tubal ligation due to failure to progress with induction agents. Risks, benefits and alternatives to the above procedure were discussed with the patient. Risks include but not limited to bleeding, infection, damage to surrounding pelvic organs, possibility for reoperation, possible need for blood transfusion, increased risk of VTE and even . Consent was obtained. DESCRIPTION OF PROCEDURE: The patient was taken to the operating room where spinal anesthesia was found to be adequate. She was then prepped and draped in normal sterile fashion in the dorsal supine position with a leftward tilt. A Pfannenstiel skin incision was then made with a scalpel, carried through the underlying layer of fascia with the Bovie. The fascia was incised in the midline. Incision extended laterally with Shafer scissors. Superior aspect of the fascial incision was then grasped with Christine clamps, elevated and the underlying rectus muscle dissected off bluntly and sharply with Shafer scissors. Inferior aspect of the incision in a similar fashion was grasped, tented up with Christine clamps and the rectus muscle dissected off bluntly and sharply with Shafer scissors. Rectus muscles were then in the midline and the peritoneum identified and entered bluntly. The peritoneal incision was then extended superiorly and inferiorly with good visualization of the bladder. The bladder blade was then inserted and lower uterine segment incised in transverse fashion with the scalpel. The uterine incision was then extended cephalad caudad fashion. The bladder blade was then removed and the 's head delivered atraumatically. The nose and mouth were suctioned and the cord clamped and cut. The was handed off to waiting RN. Cord blood was obtained. The placenta was then removed manually the uterus exteriorized and cleared of all clot and debris. The uterine incision was repaired with 0 Vicryl in a running locked fashion and a 2nd layer same suture was used to obtain hemostasis. Next the left fallopian tube was identified, grasped with a Viktoria clamp and a small window made in the mesosalpinx with the Bovie. An approximately 2 cm segment of fallopian tube was then suture ligated and excised using Metzenbaum scissors. The right fallopian tube segment was then excised in a similar fashion. Hemostasis was noted at both fallopian tube sites. The uterus was then returned to the abdomen and the gutters were cleared of all clot and debris and the uterine incision noted to be hemostatic. The fascia was then closed in a running fashion with 0 PDS. Subcutaneous fat layer was closed with 2-0 plain in a running fashion. Skin incision was then closed with 4-0 Monocryl in a subcuticular fashion. Dermabond was placed atop the incision. The patient tolerated the procedure well. Sponge, lap, needle counts were correct x3. She received 3 g of Ancef prior to skin incision. She was taken to the recovery room in stable condition. [facility]
[2019-12-14] MEDS ORDERED: NARCAN INJ PRN (17:15)
[2019-12-14] MEDS ORDERED: BENADRYL IV PRN (17:15)
[2019-12-14] MEDS ORDERED: ZOFRAN ODT PO PRN (17:15)
[2019-12-14] MEDS ORDERED: ZOFRAN IV PRN ×2 (17:15)
[2019-12-14] MEDS: MYLICON PO SCH ×2 (18:00→20:43)
[2019-12-14] MEDS: PERICOLACE PO SCH (20:43)
[2019-12-14] MEDS: DILAUDID IV PRN (21:37)
[2019-12-15] MEDS: DILAUDID IV PRN (00:15)
[2019-12-15 05:33] LABS: BASO# 0.02 X1000 (0.0-0.2); BASO% 0.1 % (0.0-0.8); EOS# 0.12 X1000 (0.0-0.7); EOS% 0.7 % (0.0-10.0); HEMATOCRIT 29.1 % (37.0-47.0); HEMOGLOBIN 9.3 g/dL (12.0-16.0); IMM GRAN# 0.06 X1000 (0.0-0.04); IMM GRAN% 0.3 % (0.0-0.5); LYMPH# 2.48 X1000 (1.2-3.4); LYMPH% 13.9 % (20.5-51.1); MCH 26.9 PG (27-31); MCV 84.1 FL (81-99); MONO# 1.27 X1000 (0.11-0.59); MONO% 7.1 % (1.7-9.3); MPV 9.8 FL (7.4-10.4); NEUT% 77.9 % (42.2-75.2); PLT 247 X1000 (130-400); RBC 3.46 XMIL (4.2-5.4); RDW 14.5 % (11.5-14.5); WBC 17.85 X1000 (4.8-10.8)
[2019-12-15] MEDS: PITOCIN 10 UNITS/NS 1,000 ML IV SCH ×2 (05:50→05:52)
[2019-12-15] MEDS ORDERED: NORCO-5 PO PRN (06:42)
[2019-12-15] MEDS: NORCO-10 PO PRN ×3 (08:19→19:30)
[2019-12-15] MEDS: MOTRIN PO PRN ×2 (08:21→16:11)
--- NOTE | 2019-12-15 08:26 | OB/GYN PROGRESS NOTE ---
- Subjective 39 yo POD#1 s/p 1LTCS, BTL with CHTN, A2-GDM, morbid obesity, AMA, tobacco abuse Patient seen and examined. Pain is controlled. Anti-HTN medication held last night due to low BP. Today BP 130s/60-70s. Will restart Labetalol 100mg BID today. She has not ambulated, hall catheter is still in. She denies any flatus. She is breast feeding and baby is doing well. She denies any nausea, vomiting. She has tolerated a regular diet. She denies any headache, vision changes, RUQ pain, SOB, chest pain. OB Physical Exam Vital Signs - 8 hr 12/15/19 05:03 12/15/19 05:28 12/15/19 07:42 Temperature 97.0 F L 98.1 F Pulse Rate 70 82 77 Respiratory Rate 18 20 18 Blood Pressure 133/54 134/63 O2 Sat by Pulse Oximetry 98 97 - CONSTITUTIONAL General Appearance: appears well, alert, no apparent distress, obese - HEAD, EARS, NOSE, MOUTH & THROAT HENMT: normocephalic/atraumatic - RESPIRATORY Respiratory: lungs clear, no respiratory distress - CARDIOVASCULAR Cardiovascular: regular rate, rhythm - GASTROINTESTINAL (ABDOMEN) Abdominal Exam: soft, other (Abdomen ATTP, decreased bowel sounds, incision c/d/i with dermabond, fundus firm/below umbilicus) - MUSCULOSKELETAL Extremity: non-tender, pedal edema (mild bilateral pedal edema) - NEUROLOGIC Neurologic: grossly normal - PSYCHIATRIC Psych/Mental Status: normal mood/affect Active Medications Generic Name Dose Route Start Last Admin Trade Name Freq PRN Reason Stop Dose Admin Acetaminophen 650 mg 12/13/19 19:32 Tylenol PO Q4-6H PRN PRN Headache Hydrocodone Bitart/Acetaminophen 1 each 12/15/19 06:42 12/15/19 08:19 [place]-10 PO 1 each Q4H PRN PRN Administration Pain Hydrocodone Bitart/Acetaminophen 1 each 12/15/19 06:42 [place]-5 PO Q4H PRN PRN Pain Bisacodyl 10 mg 12/14/19 15:54 Dulcolax [place] PRN PRN gas unrelieved by Mylicon Butorphanol Tartrate 1 mg 12/13/19 19:32 12/14/19 11:04 Stadol IV 1 mg Q2H PRN PRN Administration Pain (1-4 on Pain Scale) Butorphanol Tartrate 2 mg 12/13/19 19:32 Stadol IV PRN PRN Pain Butorphanol Tartrate 2 mg 12/13/19 19:32 12/14/19 04:35 Stadol IV 2 mg Q2H PRN PRN Administration Pain (5-10 on Pain Scale) Diphenhydramine HCl 12.5 mg 12/14/19 17:15 Benadryl IV 12/15/19 17:14 Q6H PRN PRN ITCHING IF ZOFRAN INEFFECTIVE Famotidine 20 mg 12/13/19 19:32 Pepcid PO Q12H PRN PRN GI upset or indigestion Famotidine 20 mg 12/13/19 19:32 Pepcid IV Q12H PRN PRN GI upset or indigestion Hydromorphone HCl 0.5 mg 12/14/19 21:27 12/15/19 00:15 Dilaudid IV 0.5 mg PRN PRN Administration Pain Hydroxyzine HCl 50 mg 12/14/19 15:54 Atarax PO Q3-4H PRN PRN Nausea Hydroxyzine HCl 50 mg 12/14/19 15:54 Hydroxyzine IM Q3-4H PRN PRN Nausea Cefazolin Sodium/Dextrose 1 gm in 50 mls @ 100 mls/hr 12/13/19 19:32 12/14/19 13:09 Kefzol 1 Gm/D5w IV 100 mls/hr ONCE PRN PRN Administration section Oxytocin/Sodium Chloride 30 unit in 500 mls @ 0 mls/hr 12/14/19 06:00 Pitocin 30 Units/Ns IV .Q0M JED As Directed Lactated Ringer's 1,000 mls @ 0 mls/hr 12/14/19 08:30 12/14/19 13:08 Lr IV 999 mls/hr .Q0M JED Administration As Directed Lactated Ringer's 1,000 mls @ 125 mls/hr 12/15/19 15:57 Lr IV .Q8H JED Oxytocin/Sodium Chloride 1,000 mls @ 125 mls/hr 12/14/19 22:00 12/15/19 05:52 Pitocin 10 Units/Ns IV 12/15/19 13:59 Not Given .Q8H JED Ibuprofen 800 mg 12/14/19 15:54 Motrin PO Q8H PRN PRN Pain Labetalol HCl 200 mg 12/14/19 09:00 12/14/19 20:32 Trandate PO Not Given BID JED Morphine Sulfate 2 mg 12/14/19 15:54 Morphine IV Q2H PRN PRN Pain Naloxone HCl 0.4 mg 12/14/19 17:15 Narcan INJ 12/15/19 17:14 DIRECTED PRN PRN Ondansetron HCl 4 mg 12/13/19 19:32 Zofran IV PRN PRN Nausea Ondansetron HCl 4 mg 12/14/19 16:01 Zofran PO Q6H PRN PRN Nausea And Vomiting Ondansetron HCl 4 mg 12/14/19 17:15 Zofran Odt PO 12/15/19 17:14 DIRECTED PRN PRN Ondansetron HCl 4 mg 12/14/19 17:15 Zofran IV 12/15/19 17:14 DIRECTED PRN PRN Ondansetron HCl 4 mg 12/14/19 17:15 Zofran IV 12/15/19 17:14 Q4-6H PRN PRN Itching Oxytocin 20 unit 12/14/19 15:54 Pitocin IM PRN PRN Severe bleeding Promethazine HCl 12.5 mg 12/14/19 00:34 12/14/19 01:23 Phenergan IV 12.5 mg Q4H PRN PRN Administration Nausea And Vomiting Promethazine HCl 12.5 mg 12/14/19 15:54 Phenergan IV Q4H PRN PRN Nausea And Vomiting Senna/Docusate Sodium 1 each 12/14/19 21:00 12/14/19 20:43 Pericolace PO 1 each QHS JED Administration Simethicone 80 mg 12/14/19 18:00 12/14/19 20:43 Mylicon PO 80 mg PC + HS JED Administration Simethicone 80 mg 12/14/19 15:54 Mylicon PO PRN PRN GAS Sodium Chloride 10 ml 12/14/19 00:34 12/14/19 01:23 Sodium Chloride 0.9% INJ 10 ml PRN PRN Administration Dilute Phenergan for IV use Sodium Chloride 10 ml 12/14/19 15:54 Sodium Chloride 0.9% INJ PRN PRN Dilute Phenergan for IV use Terbutaline Sulfate 0.25 mg 12/13/19 19:32 Brethine SUBQ PRN PRN tachysystole/hypertonus Zolpidem Tartrate 10 mg 12/13/19 19:32 Ambien PO HS PRN PRN Sleep Zolpidem Tartrate 10 mg 12/14/19 15:54 Ambien PO HS PRN PRN Sleep Laboratory Results - last 24 hr 12/14/19 12/14/19 12/14/19 11:53 17:26 20:59 WBC RBC Hgb Hct MCV MCH MCHC RDW Std Deviation Plt Count MPV Immature Gran % (Auto) Neut % (Auto) Lymph % (Auto) [place] % (Auto) Eos % (Auto) Baso % (Auto) Immature Gran # (Auto) Neut # (Auto) Lymph # (Auto) [place] # (Auto) Eos # (Auto) Baso # (Auto) POC Glucose 75 80 103 12/15/19 12/15/19 04:54 05:16 WBC 17.85 H RBC 3.46 L Hgb 9.3 L Hct 29.1 L MCV 84.1 MCH 26.9 L MCHC 32.0 L RDW Std Deviation 14.5 Plt Count 247 MPV 9.8 Immature Gran % (Auto) 0.3 Neut % (Auto) 77.9 H Lymph % (Auto) 13.9 L [place] % (Auto) 7.1 Eos % (Auto) 0.7 Baso % (Auto) 0.1 Immature Gran # (Auto) 0.06 H Neut # (Auto) 13.90 H Lymph # (Auto) 2.48 [place] # (Auto) 1.27 H Eos # (Auto) 0.12 Baso # (Auto) 0.02 POC Glucose 74 OB Assessment & Plan (1) S/P Status: Acute Plan: 39 yo P0D#1 s/p 1LTCS, BTL with CHTN, A2-GDM, AMA, morbid obesity, tobacco abuse, anemia 1. HD stable, afebrile. PP Hgb 9.3> Iron BID 2. Labetalol 200mg PO BID held last night due to low BP> Will restart Labetalol 100mg PO BID this AM 3. Routine PP care, encouraged ambulation/ today 4. Hall out this AM, await void 5. Check fasting BG in AM, insulin/metformin discontinued
[2019-12-15] MEDS: TRANDATE PO SCH ×2 (08:51→22:35)
[2019-12-15] MEDS: FERROUS SULFATE PO SCH ×2 (08:51→22:35)
[2019-12-15] MEDS: MYLICON PO SCH ×4 (08:52→22:35)
[2019-12-15] MEDS ORDERED: LR 1,000 ML IV SCH (15:57)
[2019-12-15] MEDS ORDERED: PYRIDIUM PO ONE (17:13)
[2019-12-15] MEDS: PERICOLACE PO SCH (22:35)
[2019-12-15] MEDS: PERCOCET-10 PO PRN (23:35)
[2019-12-16] MEDS: MOTRIN PO PRN ×3 (01:27→20:09)
[2019-12-16] MEDS: PERCOCET-10 PO PRN ×5 (04:04→21:28)
--- NOTE | 2019-12-16 07:44 | OB/GYN PROGRESS NOTE ---
- Subjective 39 yo POD#2 s/p 1LTCS, BTL with CHTN, A2-GDM, morbid obesity, AMA, tobacco abuse Patient seen and examined. Pain well controlled. Ambulating and urinating without difficulty. +flatus but denies BM. Ambits to both breast and bottle feeding. Tolerating regular diet. Denies fever, chills, nausea, vomiting, LYNCH, scotomata or epigastric pain. OB Physical Exam Vital Signs - 8 hr 12/16/19 01:18 Temperature 98.4 F Pulse Rate 85 Respiratory Rate 18 Blood Pressure 136/61 O2 Sat by Pulse Oximetry 98 - CONSTITUTIONAL General Appearance: appears well, alert, no apparent distress - RESPIRATORY Respiratory: lungs clear - CARDIOVASCULAR Cardiovascular: regular rate, rhythm - GASTROINTESTINAL (ABDOMEN) Abdominal Exam: non tender, soft - MUSCULOSKELETAL Extremity: no calf tenderness - SKIN Integumentary: normal color, warm/dry (Incision: CLAU dressing in place, incision site dry) - PSYCHIATRIC Psych/Mental Status: normal mood/affect, oriented x 3 Active Medications Generic Name Dose Route Start Last Admin Trade Name Freq PRN Reason Stop Dose Admin Acetaminophen 650 mg 12/13/19 19:32 Tylenol PO Q4-6H PRN PRN Headache Hydrocodone Bitart/Acetaminophen 1 each 12/15/19 06:42 12/15/19 19:30 [place]-10 PO 1 each Q4H PRN PRN Administration Pain Hydrocodone Bitart/Acetaminophen 1 each 12/15/19 06:42 [place]-5 PO Q4H PRN PRN Pain Bisacodyl 10 mg 12/14/19 15:54 Dulcolax [place] PRN PRN gas unrelieved by Mylicon Butorphanol Tartrate 1 mg 12/13/19 19:32 12/14/19 11:04 Stadol IV 1 mg Q2H PRN PRN Administration Pain (1-4 on Pain Scale) Butorphanol Tartrate 2 mg 12/13/19 19:32 Stadol IV PRN PRN Pain Butorphanol Tartrate 2 mg 12/13/19 19:32 12/14/19 04:35 Stadol IV 2 mg Q2H PRN PRN Administration Pain (5-10 on Pain Scale) Famotidine 20 mg 12/13/19 19:32 Pepcid PO Q12H PRN PRN GI upset or indigestion Famotidine 20 mg 12/13/19 19:32 Pepcid IV Q12H PRN PRN GI upset or indigestion Ferrous Sulfate 325 mg 12/15/19 09:00 12/15/19 22:35 Ferrous Sulfate PO 325 mg BID [facility] Administration Hydromorphone HCl 0.5 mg 12/14/19 21:27 12/15/19 00:15 Dilaudid IV 0.5 mg PRN PRN Administration Pain Hydroxyzine HCl 50 mg 12/14/19 15:54 Atarax PO Q3-4H PRN PRN Nausea Hydroxyzine HCl 50 mg 12/14/19 15:54 Hydroxyzine IM Q3-4H PRN PRN Nausea Cefazolin Sodium/Dextrose 1 gm in 50 mls @ 100 mls/hr 12/13/19 19:32 12/14/19 13:09 Kefzol 1 Gm/D5w IV 100 mls/hr ONCE PRN PRN Administration section Ibuprofen 800 mg 12/14/19 15:54 12/16/19 01:27 Motrin PO 800 mg Q8H PRN PRN Administration Pain Labetalol HCl 100 mg 12/15/19 09:00 12/15/19 22:35 Trandate PO 100 mg BID [facility] Administration Morphine Sulfate 2 mg 12/14/19 15:54 Morphine IV Q2H PRN PRN Pain Ondansetron HCl 4 mg 12/13/19 19:32 Zofran IV PRN PRN Nausea Ondansetron HCl 4 mg 12/14/19 16:01 Zofran PO Q6H PRN PRN Nausea And Vomiting Oxycodone/Acetaminophen 1 each 12/15/19 23:13 12/16/19 04:04 Percocet-10 PO 1 each Q4H PRN PRN Administration Pain Oxytocin 20 unit 12/14/19 15:54 Pitocin IM PRN PRN Severe bleeding Phenazopyridine HCl 200 mg 12/16/19 09:00 Pyridium PO TID [facility] Promethazine HCl 12.5 mg 12/14/19 00:34 12/14/19 01:23 Phenergan IV 12.5 mg Q4H PRN PRN Administration Nausea And Vomiting Promethazine HCl 12.5 mg 12/14/19 15:54 Phenergan IV Q4H PRN PRN Nausea And Vomiting Senna/Docusate Sodium 1 each 12/14/19 21:00 12/15/19 22:35 Pericolace PO 1 each QHS JED Administration Simethicone 80 mg 12/14/19 18:00 12/15/19 22:35 Mylicon PO 80 mg PC + HS EJD Administration Simethicone 80 mg 12/14/19 15:54 Mylicon PO PRN PRN GAS Sodium Chloride 10 ml 12/14/19 00:34 12/14/19 01:23 Sodium Chloride 0.9% INJ 10 ml PRN PRN Administration Dilute Phenergan for IV use Sodium Chloride 10 ml 12/14/19 15:54 Sodium Chloride 0.9% INJ PRN PRN Dilute Phenergan for IV use Terbutaline Sulfate 0.25 mg 12/13/19 19:32 Breth[place] SUBQ PRN PRN tachysystole/hypertonus Zolpidem Tartrate 10 mg 12/13/19 19:32 Ambien PO HS PRN PRN Sleep Zolpidem Tartrate 10 mg 12/14/19 15:54 Ambien PO HS PRN PRN Sleep Laboratory Results - last 24 hr 12/15/19 12/15/19 12/15/19 09:10 13:25 19:12 POC Glucose 108 H 104 102 12/16/19 12/16/19 01:24 05:46 POC Glucose 109 H 97 OB Assessment & Plan (1) S/P Status: Acute Plan: 39 yo POD#2 s/p 1LTCS, BTL with CHTN, A2-GDM, morbid obesity, AMA, tobacco abuse and anemia 1. HD stable, afebrile. Continue Iron BID 2. Reviewed signs/symptoms of pre-eclampsia. Continue Labetalol 100mg PO BID 3. Routine PP care, encouraged ambulation/ 4. BS well controlled. will d/c monitoring and repeat DM screening at 6 weeks PP 5. Plan for d/c home tomorrow
[2019-12-16] MEDS: PYRIDIUM PO SCH ×3 (08:39→18:08)
[2019-12-16] MEDS: FERROUS SULFATE PO SCH ×2 (08:39→20:09)
[2019-12-16] MEDS: TRANDATE PO SCH ×2 (08:39→20:09)
[2019-12-16] MEDS: MYLICON PO SCH ×4 (08:39→20:09)
[2019-12-16] MEDS: PERICOLACE PO SCH (20:09)
[2019-12-17] MEDS: PERCOCET-10 PO PRN ×3 (01:24→10:23)
[2019-12-17] MEDS: MOTRIN PO PRN (06:18)
[2019-12-17 08:28] VITALS: BP 143/80
[2019-12-17] MEDS: FERROUS SULFATE PO SCH (08:32)
[2019-12-17] MEDS: PYRIDIUM PO SCH (08:32)
[2019-12-17] MEDS: TRANDATE PO SCH (08:33)
[2019-12-17] MEDS: MYLICON PO SCH (08:33)
--- NOTE | 2019-12-17 12:54 | OB/GYN PROGRESS NOTE ---
- Subjective 39 yo POD#3 s/p 1LTCS, BTL with CHTN, A2-GDM, morbid obesity, AMA, tobacco abuse Patient seen and examined. Pain well controlled. She notes minimal lochia. She is ambulating and voiding without difficulty. She is tolerating a regular diet. She is passing flatus, no BM yet. She denies nausea/vomiting. Baby is doing well. She is breast/bottle feeding. She has a CLAU dressing that was placed on POD#1. She denies any headache, vision changes, chest pain, SOB, RUQ pain. She desires discharge home today. OB Physical Exam Vital Signs - 8 hr 12/16/ 08:23 Temperature 97.2 F L Pulse Rate 83 Respiratory Rate 20 Blood Pressure 143/80 O2 Sat by Pulse Oximetry 97 - CONSTITUTIONAL General Appearance: appears well, alert, no apparent distress, obese - EYES Eyes: PERRL/EOMI - HEAD, EARS, NOSE, MOUTH & THROAT HENMT: normocephalic/atraumatic - RESPIRATORY Respiratory: lungs clear, normal breath sounds, no respiratory distress - CARDIOVASCULAR Cardiovascular: normal peripheral pulses, regular rate, rhythm - GASTROINTESTINAL (ABDOMEN) Abdominal Exam: normal bowel sounds, soft, other (ATTP CLAU dressing removed, incision C/D/I, no erythema or swelling, no discharge. CLAU dressing replaced with re-inforcment strips. FF, below umbilicus) - MUSCULOSKELETAL Extremity: normal range of motion, pedal edema (2+ BLE edema) DTR: knee (R): 1+, knee (L): 1+ - NEUROLOGIC Neurologic: grossly normal - PSYCHIATRIC Psych/Mental Status: normal mood/affect Active Medications Generic Name Dose Route Start Last Admin Trade Name Freq PRN Reason Stop Dose Admin Acetaminophen 650 mg 12/13/19 19:32 Tylenol PO Q4-6H PRN PRN Headache Hydrocodone Bitart/Acetaminophen 1 each 12/15/19 06:42 12/15/19 19:30 Miller-10 PO 1 each Q4H PRN PRN Administration Pain Hydrocodone Bitart/Acetaminophen 1 each 12/15/19 06:42 Miller-5 PO Q4H PRN PRN Pain Bisacodyl 10 mg 12/14/19 15:54 Dulcolax WA PRN PRN gas unrelieved by Mylicon Famotidine 20 mg 12/13/19 19:32 Pepcid PO Q12H PRN PRN GI upset or indigestion Famotidine 20 mg 12/13/19 19:32 Pepcid IV Q12H PRN PRN GI upset or indigestion Ferrous Sulfate 325 mg 12/15/19 09:00 12/17/19 08:32 Ferrous Sulfate PO 325 mg BID JED Administration Hydroxyzine HCl 50 mg 12/14/19 15:54 Atarax PO Q3-4H PRN PRN Nausea Hydroxyzine HCl 50 mg 12/14/19 15:54 Hydroxyzine IM Q3-4H PRN PRN Nausea Ibuprofen 800 mg 12/14/19 15:54 12/17/19 06:18 Motrin PO 800 mg Q8H PRN PRN Administration Pain Labetalol HCl 100 mg 12/15/19 09:00 12/17/19 08:33 Trandate PO 100 mg BID JED Administration Ondansetron HCl 4 mg 12/14/19 16:01 Zofran PO Q6H PRN PRN Nausea And Vomiting Oxycodone/Acetaminophen 1 each 12/15/19 23:13 12/17/19 10:23 Percocet-10 PO 1 each Q4H PRN PRN Administration Pain Oxytocin 20 unit 12/14/19 15:54 Pitocin IM PRN PRN Severe bleeding Phenazopyridine HCl 200 mg 12/16/19 09:00 12/17/19 08:32 Pyridium PO 200 mg TID JED Administration Senna/Docusate Sodium 1 each 12/14/19 21:00 12/16/19 20:09 Pericolace PO 1 each QHS JED Administration Simethicone 80 mg 12/14/19 18:00 12/17/19 08:33 Mylicon PO 80 mg PC + HS JED Administration Simethicone 80 mg 12/14/19 15:54 Mylicon PO PRN PRN GAS Zolpidem Tartrate 10 mg 12/13/19 19:32 Ambien PO HS PRN PRN Sleep OB Assessment & Plan (1) S/P Status: Acute Plan: 39 yo POD#3 s/p 1LTCS, BTL with CHTN, A2-GDM, morbid obesity, AMA, tobacco abuse, anemia 1. HD stable, afebrile 2. Iron BID for anemia 3 .BP within range on labetalol 100mg PO BID 4. CLAU dressing replaced today prior to discharge, incision without signs of infection 5. Encourage ambulation 6. Recommended LE elevation for pedal edema 7. Discussed signs/symptoms of PreE and to return with new onset symptoms 8. D/C home today, follow-up appointment on Wednesday 12/20 at 1030
--- NOTE | 2019-12-17 15:12 | DISCHARGE SUMMARY ---
ADMISSION DATE: 12/13/2019 DISCHARGE DATE: 12/17/2019 CONDITION ON DISCHARGE: Stable. FINAL DIAGNOSES: 1. A 39-year-old, 4, para 3-0-1-3, postoperative day #3 status post primary low transverse section with bilateral tubal ligation. 2. Chronic hypertension. 3. A2 gestational diabetes. 4. Morbid obesity. 5. Advanced maternal age. 6. Tobacco abuse. HOSPITAL COURSE: The patient was admitted on December 12 for medical induction of labor at 38 weeks due to chronic hypertension and A2 gestational diabetes. She underwent cervical ripening with Cytotec. However, her cervix failed to dilate. A decision was made to proceed with a primary low-transverse section with a bilateral tubal ligation. Consent for a bilateral tubal ligation had previously been signed in clinic and she had been counseled regarding its permanence, that it means no more children and that it is irreversible. She underwent a section on December 13 and had a routine course. Wound care was consulted on postoperative day 1 and a negative pressure Zeke dressing was applied to the incision due to her risk factors for poor healing and risk for infection. Postoperatively, her blood pressures were noted to be lower and her antihypertensive medication was held. This was restarted, labetalol 100 mg twice a day on postoperative day 1 due to mild range blood pressures that she developed after delivery. On postoperative day #3, she was deemed stable for discharge. Her pain was well- controlled. She notes minimal lochia. She is ambulating and voiding without difficulty. She is tolerating a regular diet and denies any nausea or vomiting. She is passing flatus. Baby is doing well, and she is breast and bottle-feeding. Blood pressure is within normal range and she denies any signs or symptoms of preeclampsia. Her Zeke dressing was changed prior to discharge. Incision appeared clean, dry, and intact with no signs of erythema, swelling, or purulent discharge. She will be discharged home today with the Zeke dressing intact and followup in clinic on Saturday for removal. DISCHARGE MEDICATIONS: 1. Percocet 10/325 mg by mouth every 4 hours as needed for pain, dispense #20. 2. Motrin 800 mg by mouth every 8 hours as needed for pain. 3. Kinga-Colace 100 mg by mouth at bedtime as needed for constipation. 4. Labetalol 100 mg by mouth twice a day. 5. Iron 325 mg by mouth twice a day. DISCHARGE INSTRUCTIONS: Patient was instructed to notify doctor with temperature greater than 100.4 degrees Fahrenheit, vaginal bleeding greater than a pad an hour, foul-smelling discharge from her incision, severe abdominal pain. She was also instructed to notify doctor with headaches, vision changes, acute chest pain or shortness of breath, or right upper quadrant pain. Also instructed to notify doctor with systolic blood pressure greater than 160 or diastolic blood pressure greater than 110. FOLLOWUP APPOINTMENTS: The patient has a followup appointment on Saturday, December 20, at 10:30 for an incision and blood pressure check.
== END 2019-12-17 14:20 | disposition home or self-care (01) | DRG 784 ==
LOC: LD 19:28
PROVIDERS: ADMIT Student in an Organized Health Care Education/Training Program; ATTEND Student in an Organized Health Care Education/Training Program